=== PATIENT | male | born 1975 | race American Indian/Alaskan Native ===

== ENCOUNTER 2017-02-19 17:44 | Emergency (ER) | payer SELFPAY ==
--- NOTE | 2017-02-19 18:12 | ED PDOC ---
Arrival/HPI - General Chief Complaint: High Blood Pressure Time Seen by Provider: 02/19/17 18:08 Historian: Patient - History of Present Illness Narrative History of Present Illness (Text): 02/19/17 18:09 41 y/o male, pmh including htn/hyperlipidemia, nkda, c/o out of the blood pressure medication x 2 weeks. Pt. stated that he is chronically on the lisinopril/hctz 20/12.5mg po qd, pmd won't give it to him until he come to see him as the patient which is until the end of the February. Pt. has no chest pain or shortness of breath, no fever or chills, no chest pain or shortness of breath, no numbness or tingling, no palpitation, no other medical or psychological complaints. Past Medical History - Provider Review Nursing Documentation Reviewed: Yes - Infectious Disease Hx of Infectious Diseases: None - Tetanus Immunization Tetanus Immunization: Up to Date - Past Medical History Past Medical History: No Previous - Cardiac Hx Hypertension: Yes - Psychiatric Hx Depression: No Hx Emotional Abuse: No Hx Physical Abuse: No Hx Substance Use: No - Past Surgical History Past Surgical History: No Previous - Anesthesia Hx Anesthesia: No Hx Anesthesia Reactions: No Hx Malignant Hyperthermia: No - Suicidal Assessment Feels Threatened In Home Enviroment: No Family/Social History - Physician Review Nursing Documentation Reviewed: Yes Family/Social History: Unknown Family HX Smoking Status: Never Smoked Hx Alcohol Use: No Hx Substance Use: No Hx Substance Use Treatment: No Allergies/Home Meds Allergies/Adverse Reactions: Allergies shellfish derived Allergy (Verified 02/19/17 18:11) ANGIOEDEMA Home Medications: Home Meds Medication Instructions Recorded Confirmed Lisinopril/Hydrochlorothiazide 1 tab PO DAILY 07/18/13 02/19/17 [Lisinopril and Hydrochlorothiazide 12.5 mg-20] Simvastatin [Simvastatin] 10 mg PO DAILY 08/11/13 02/19/17 Review of Systems - Review of Systems Constitutional: absent: Fatigue, Fevers Eyes: absent: Vision Changes ENT: absent: Hearing Changes Respiratory: absent: SOB, Cough Cardiovascular: absent: Chest Pain Gastrointestinal: absent: Abdominal Pain, Nausea, Vomiting Skin: absent: Rash, Pruritis Neurological: absent: Headache, Dizziness, Focal Weakness, Gait Changes Physical Exam Vital Signs Reviewed: Yes Vital Signs Temp Pulse Resp BP Pulse Ox 02/19/17 18:26 78 157/102 H 02/19/17 18:16 98.2 F 84 18 157/102 H 98 02/19/17 17:56 98.2 F 82 18 170/104 H 99 Temperature: Afebrile Blood Pressure: Hypertensive Pulse: Regular Respiratory Rate: Normal Appearance: Positive for: Well-Appearing, Non-Toxic, Comfortable Pain Distress: None Mental Status: Positive for: Alert and Oriented X 3 - Systems Exam Head: Present: Atraumatic, Normocephalic Pupils: Present: PERRL Extroacular Muscles: Present: EOMI Conjunctiva: Present: Normal Mouth: Present: Moist Mucous Membranes Neck: Present: Normal Range of Motion Respiratory/Chest: Present: Clear to Auscultation, Good Air Exchange. No: Respiratory Distress, Accessory Muscle Use Cardiovascular: Present: Regular Rate and Rhythm, Normal S1, S2. No: Murmurs Abdomen: Present: Normal Bowel Sounds. No: Tenderness, Distention, Peritoneal Signs Upper Extremity: Present: Normal Inspection. No: Cyanosis, Edema Lower Extremity: Present: Normal Inspection. No: Edema Neurological: Present: GCS=15, Speech Normal, Motor Func Grossly Intact, Gait Normal, Memory Normal Skin: Present: Warm, Dry, Normal Color. No: Rashes Psychiatric: Present: Alert, Oriented x 3, Normal Insight, Normal Concentration Medical Decision Making ED Course and Treatment: 02/19/17 18:11 -will check potassium/bun/creatine -will give lisinopril/hctz prescription, give 1st dose here and reassess 02/19/17 18:38 -Labs are non-significant -Chronic htn, asymptomatic, will discharge home. -Discharge home with lisinopril/hctz, follow up with your own pmd within 2 days , return to the ER for any new or worsening signs or symptoms. - Lab Interpretations Lab Results: 02/19/17 18:13 Lab Results 02/19/17 18:13: Sodium 142, Potassium 3.6, Chloride 104, Carbon Dioxide 27, Anion Gap 15, BUN 12, Creatinine 0.9, Est GFR ( Amer) > 60, Est GFR (Non- Af Amer) > 60, Random Glucose 83, Calcium 9.4, Total Bilirubin 0.4, AST 30, ALT 44, Alkaline Phosphatase 66, Total Protein 7.7, Albumin 4.2, Globulin 3.4, Albumin/Globulin Ratio 1.2 I have reviewed the lab results: Yes Interpretation: No clinic. lab abnormalty - Medication Orders Current Medication Orders: Discontinued Medications Hydrochlorothiazide (Microzide) 12.5 mg PO STAT STA Stop: 02/19/17 18:13 Last Admin: 02/19/17 18:26 Dose: 12.5 mg Lisinopril (Zestril) 20 mg PO STAT STA Stop: 02/19/17 18:13 Last Admin: 02/19/17 18:26 Dose: 20 mg - PA / ALL AROUND PRESSER / Resident Statement MD/DO has reviewed & agrees with the documentation as recorded. Disposition/Present on Arrival - Present on Arrival Any Indicators Present on Arrival: No History of DVT/PE: No History of Uncontrolled Diabetes: No Urinary Catheter: No History of Decub. Ulcer: No History Surgical Site Infection Following: None - Disposition Have Diagnosis and Disposition been Completed?: Yes Diagnosis: HTN (hypertension), Medication refill Disposition: HOME/ ROUTINE Disposition Time: 18:12 Patient Plan: Discharge Patient Problems: Current Active Problems Problem Status Onset HTN (hypertension) Acute Medication refill Acute Condition: GOOD Additional Instructions: -Discharge home with lisinopril/hctz, follow up with your own pmd within 2 days , return to the ER for any new or worsening signs or symptoms. Prescriptions: Lisinopril/Hydrochlorothiazide [Lisinopril-Hctz 20-12.5 mg Tab] 1 each PO DAILY #30 tablet Referrals: [facility] at [facility] [Outside] - Follow up with primary Forms: [employer] (Telugu), WORK NOTE
[2017-02-19 18:21] VITALS: RESP 18; TEMP 98.2; BMI 32.5
[2017-02-19 18:26] VITALS: PULSE 78
[2017-02-19 18:36] LABS: ALB/GLOB RATIO 1.2 (1.1-1.8); ALKALINE PHOSPHATASE 66 U/L (38-126); ALT/SGPT 44 U/L (7-56); AST/SGOT 30 U/L (17-59); BILIRUBIN,TOTAL 0.4 mg/dL (0.2-1.3); BLOOD UREA NITROGEN 12 mg/dL (7-21); CALCIUM 9.4 mg/dL (8.4-10.5); CARBON DIOXIDE 27 mmol/L (21-33); CHLORIDE 104 mmol/L (98-107); GFR AFRICAN-AMERICAN > 60; GLUCOSE,RANDOM 83 mg/dL (70-110); POTASSIUM 3.6 mmol/L (3.6-5.0); SODIUM 142 mmol/L (132-148); TOTAL PROTEIN 7.7 g/dL (5.8-8.3)
[2017-02-19 18:42] VITALS: BP 153/96; O2SAT 99
== END 2017-02-19 18:55 | disposition home or self-care (01) ==
LOC: ED 17:44
DX: I10 Essential (primary) hypertension (principal); Z76.0 Encounter for issue of repeat prescription; E78.5 Hyperlipidemia, unspecified